=== PATIENT | male | born 1960 | race Caucasian/White ===

== ENCOUNTER 2017-04-17 03:45 | Emergency (ER) | payer OTHER ==
[~2017-04-17] VITALS: Ht 180.3 cm; Wt 120.2 kg
--- NOTE | 2017-04-17 03:57 | ED GI/GU/ABDOMINAL COMPLAINT ---
History of Present Illness General Chief Complaint: Abdominal Pain/Flank Pain Stated Complaint: RIGHT SIDE FLANK PAIN Source: patient Exam Limitations: no limitations Vital Signs & Intake/Output Vital Signs & Intake/Output Vital Signs Date Time Temp Pulse Resp B/P B/P Pulse O2 O2 Flow FiO2 Mean Ox Delivery Rate 04/17 0349 97.5 88 16 193/92 99 Room Air Allergies Coded Allergies: NO KNOWN ALLERGIES (04/12/12) Reconcile Medications No Known Home Medications Triage Note: 56YO MALE TO TRIAGE W/CO R SIDED FLANK PAIN THAT AWOKE HIME AT 0145. CO WAVES OF NAUSEA W/PAIN. Triage Nurses Notes Reviewed? yes HPI: DUPLICATE NOTE PLEASE DISREGARD Past History Travel History Traveled to [place] past 21 day No Medical History Any Pertinent Medical History? see below for history Tetanus Vaccine: 04/12/12 Psychosocial History What is your primary language Luxembourgish Tobacco Use: Never used Review of Systems Review of Systems Constitutional: Reports: no symptoms. EENTM: Reports: no symptoms. Respiratory: Reports: no symptoms. Cardiovascular: Reports: no symptoms. GI: Reports: no symptoms. Genitourinary: Reports: no symptoms. Musculoskeletal: Reports: no symptoms. Skin: Reports: no symptoms. Neurological/Psychological: Reports: no symptoms. Hematologic/Endocrine: Reports: no symptoms. Immunologic/Allergic: Reports: no symptoms. All Other Systems: Reviewed and Negative Progress Plan of Care: Orders Procedure Date/time Status CT ABD & PELVIS W/O IV CONTRAS 04/17 413 Active URINALYSIS 04/17 359 Active LIPASE 04/17 359 Active HEPATIC FUNCTION PANEL 04/17 359 Active CBC WITHOUT DIFFERENTIAL 04/17 359 Active BASIC METABOLIC PANEL 04/17 359 Active AMYLASE 04/17 359 Active Current Medications Sig/Bran Start time Last Medication Dose Stop Time Status Admin Sodium Chloride 1,000 ML BOLUS ONE 04/17 415 AC (Normal Saline 0.9%) 04/17 614 Departure Departure Condition: Stable Referrals: PATIENT HAS NO PRIMARY CARE DR (PCP/Family) Departure Forms: Customer Survey General Discharge Information Prescriptions: Current Visit Scripts No Known Home Medications
--- NOTE | 2017-04-17 03:59 | ED GI/GU/ABDOMINAL COMPLAINT ---
History of Present Illness General Chief Complaint: Abdominal Pain/Flank Pain Stated Complaint: RIGHT SIDE FLANK PAIN Source: patient Exam Limitations: no limitations Allergies Coded Allergies: NO KNOWN ALLERGIES (04/12/12) Reconcile Medications Ibuprofen 800 MG TABLET 1 TAB PO TID PRN pain Tamsulosin HCl (Flomax) 0.4 MG CAP.ER.24H 1 CAP PO DAILY kidney stone Triage Note: 56YO MALE TO TRIAGE W/CO R SIDED FLANK PAIN THAT AWOKE HIME AT 0145. CO WAVES OF NAUSEA W/PAIN. Triage Nurses Notes Reviewed? yes HPI: 56y M coming in for sudden onset 3/10 R flank pain at 0145 that woke him up at sleep. The pain is constant dull pain and does not radiate. he denied SOB/CP/ Fever, or PMH of kidney/gall stones. He urinated after waking up but no burning/ blood in urine. he felt nauseated but not vomiting. He ate regular dinner last night with at home. He denied recent trauma to flank area. Pt denied fever/night sweat/weight change/mood change/insomnia, dietary/appetite change, Cough/SOB/CP/Palpitation/exercise intolerance, bowel movement/urinary abnormality, or other skin/musculoskeletal/neurological disorders. (AARON URBAN,DORIS FERRERA) Vital Signs & Intake/Output Vital Signs & Intake/Output Vital Signs Date Time Temp Pulse Resp B/P B/P Pulse O2 O2 Flow FiO2 Mean Ox Delivery Rate 04/17 0631 97.5 81 18 170/98 95 Room Air 04/17 0349 97.5 88 16 193/92 99 Room Air Past History Travel History Traveled to [place] past 21 day No Medical History Any Pertinent Medical History? see below for history Tetanus Vaccine: 04/12/12 Surgical History Surgical History: non-contributory Psychosocial History What is your primary language Greenlandic Tobacco Use: Never used Family History Hx Contributory? No (AARON URBAN,DORIS FERRERA) Review of Systems Review of Systems Constitutional: Reports: see HPI. Comments Constitutional: no significant weight change. No fatigue, fever, night sweats, or exercise intolerance. Skin: no jaundice, hives, eczema, rashes, or abnormal moles. Neck: no swollen glands or neck stiffness. Respiratory: no cough, wheezing, shortness of breath, or coughing up blood. Cardiovascular: no SOB, palpitations, chest pain, arm pain on exertion, or leg swelling. Gastrointestinal: R flank pain. Normal appetite. no vomiting, diarrhea, constipation, or rectal bleeding. Genitourinary: No incontinence, hematuria, difficulty urinating, or increased frequency. Musculoskeletal: no muscle aches or weakness, no arthralgias/joint pain, or back pain; Neurologic: no loss of consciousness or balance; no weakness, numbness, seizures , or dizziness. Psych: no depression, anxiety, sleep disturbances, homicidal thoughts, or suicidal thoughts. (AARON URBAN,DORIS FERRERA) Physical Exam Physical Exam Gastrointestinal: tenderness, R flank pain Comments: Head: normocephalic and atraumatic. Lungs: no dyspnea and good air movement. no wheezing, rales/crackles, or rhonchi and breath sounds normal. Cardiovascular: Apical Impulse ot displaced. normal S1 and S2; no murmurs, rubs, or gallops; and RRR. no carotid bruits. Abdomen: R flank pain 3/10 upon palpation deep. normal bowel sound. No masses, no other tenderness (no guarding, no rebound), or CVA tenderness and soft and non-distended. Back: normal curvature; No tenderness upon palpation. (AARON URBAN,DORIS FERRERA) Core Measures ACS in differential dx? No Severe Sepsis Present: No Septic Shock Present: No (LÁZARO URBAN,MANISH Aguilar) Progress Differential Diagnosis: appendicitis, cholecystitis, ureterolithiasis Diagnostic Imaging: Discussed w/RAD: CT Scan. Radiology Impression: PATIENT: SUSIE RO PRESENT AGE: 56 PATIENT ACCOUNT NO: [id number] : 60 LOCATION: [facility] ORDERING PHYSICIAN: DORIS WALKER MD SERVICE DATE: 04/17/17 EXAM TYPE: CAT - CT ABD & PELVIS W/O IV CONTRAS EXAMINATION: CT ABDOMEN AND PELVIS WITHOUT CONTRAST CLINICAL INFORMATION: Right flank pain COMPARISON: None TECHNIQUE: Multidetector volumetric imaging was performed from the superior aspect of the liver through the pubic symphysis. Sagittal and coronal reformatted images were obtained on the technologist's workstation. DLP: 1293.33 mGy-cm FINDINGS: LUNG BASES: The visualized lung bases are unremarkable. LIVER, GALLBLADDER, AND BILIARY TREE: The liver is normal in size, shape, and attenuation. No focal hepatic lesion or biliary ductal dilatation is present. The gallbladder is unremarkable with no evidence of radiopaque gallstones, gallbladder wall thickening, or obvious pericholecystic inflammatory changes. PANCREAS: Unremarkable. SPLEEN: Unremarkable. ADRENAL GLANDS: Unremarkable. KIDNEYS AND URETERS: There is a 3 mm calculus in the proximal right ureter with mild hydronephrosis and associated perinephric stranding. No additional calculi are seen bilaterally. No left hydronephrosis. BLADDER: Unremarkable. GASTROINTESTINAL TRACT: The small and large bowel are unremarkable. The appendix is unremarkable. ABDOMINAL WALL: No significant hernia is appreciated. LYMPH NODES: Normal. VASCULAR: Unremarkable. PELVIC VISCERA: Unremarkable. OSSEOUS STRUCTURES: Degenerative changes are noted in the spine. IMPRESSION: Proximal right ureteral calculus measuring 3 mm with mild hydronephrosis. DICTATED BY: LUANNE WATT MD DATE/TIME DICTATED:04/17/17527 WINDOW TREATMENT INSTALLER:GIN DATE/TIME TRANSCRIBED:04/17/17527 CONFIDENTIAL, DO NOT COPY WITHOUT APPROPRIATE AUTHORIZATION. <Electronically signed in Other Vendor System> SIGNED BY: LUANNE WATT MD 04/17/17536 Initial ED EKG: none (AARON URBAN,DORIS FERRERA) Plan of Care: Orders Procedure Date/time Status URINALYSIS 04/17 359 Active LIPASE 04/17 359 Complete HEPATIC FUNCTION PANEL 04/17 359 Complete CBC WITHOUT DIFFERENTIAL 04/17 359 Complete BASIC METABOLIC PANEL 04/17 359 Complete AMYLASE 04/17 359 Complete Current Medications Sig/Bran Start time Last Medication Dose Stop Time Status Admin Ketorolac 30 MG ONCE ONE 04/17 415 CAN Tromethamine 04/17 416 (Toradol) Laboratory Tests 04/17/17417: Anion Gap 12, Estimated GFR > 60, BUN/Creatinine Ratio 16.4, Glucose 162 H, Calcium 9.6, Total Bilirubin 0.4, Direct Bilirubin 0.3, AST 36, ALT 52, Alkaline Phosphatase 73, Total Protein 7.6, Albumin 4.4, Amylase 43, Lipase 64, CBC w Diff NO MAN DIFF REQ, RBC 5.24, MCV 86.6, MCH 29.7, RDW 13.6, MPV 9.4, Gran % 61.6, Lymphocytes % 27.9, Monocytes % 6.8, Eosinophils % 3.2, Basophils % 0.5, Absolute Granulocytes 5.7, Absolute Lymphocytes 2.6, Absolute Monocytes 0.6, Absolute Eosinophils 0.3, Absolute Basophils 0, PUBS MCHC 34.3 Radiology Impression: PATIENT: SUSIE RO PRESENT AGE: 56 PATIENT ACCOUNT NO: [id number] : 60 LOCATION: [facility] ORDERING PHYSICIAN: DORIS WALKER MD SERVICE DATE: 04/17/17 EXAM TYPE: CAT - CT ABD & PELVIS W/O IV CONTRAS EXAMINATION: CT ABDOMEN AND PELVIS WITHOUT CONTRAST CLINICAL INFORMATION: Right flank pain COMPARISON: None TECHNIQUE: Multidetector volumetric imaging was performed from the superior aspect of the liver through the pubic symphysis. Sagittal and coronal reformatted images were obtained on the technologist's workstation. DLP: 1293.33 mGy-cm FINDINGS: LUNG BASES: The visualized lung bases are unremarkable. LIVER, GALLBLADDER, AND BILIARY TREE: The liver is normal in size, shape, and attenuation. No focal hepatic lesion or biliary ductal dilatation is present. The gallbladder is unremarkable with no evidence of radiopaque gallstones, gallbladder wall thickening, or obvious pericholecystic inflammatory changes. PANCREAS: Unremarkable. SPLEEN: Unremarkable. ADRENAL GLANDS: Unremarkable. KIDNEYS AND URETERS: There is a 3 mm calculus in the proximal right ureter with mild hydronephrosis and associated perinephric stranding. No additional calculi are seen bilaterally. No left hydronephrosis. BLADDER: Unremarkable. GASTROINTESTINAL TRACT: The small and large bowel are unremarkable. The appendix is unremarkable. ABDOMINAL WALL: No significant hernia is appreciated. LYMPH NODES: Normal. VASCULAR: Unremarkable. PELVIC VISCERA: Unremarkable. OSSEOUS STRUCTURES: Degenerative changes are noted in the spine. IMPRESSION: Proximal right ureteral calculus measuring 3 mm with mild hydronephrosis. DICTATED BY: LUANNE WATT MD DATE/TIME DICTATED:04/17/17527 WINDOW TREATMENT INSTALLER:GIN DATE/TIME TRANSCRIBED:04/17/17527 CONFIDENTIAL, DO NOT COPY WITHOUT APPROPRIATE AUTHORIZATION. <Electronically signed in Other Vendor System> SIGNED BY: LUANNE WATT MD 04/17/17 0537 Comments: PATIENT: SUSIE RO PRESENT AGE: 56 PATIENT ACCOUNT NO: [id number] : 60 LOCATION: ER ORDERING PHYSICIAN: DORIS WALKER MD SERVICE DATE: 04/17/175 EXAM TYPE: CAT - CT ABD & PELVIS W/O IV CONTRAS EXAMINATION: CT ABDOMEN AND PELVIS WITHOUT CONTRAST CLINICAL INFORMATION: Right flank pain COMPARISON: None TECHNIQUE: Multidetector volumetric imaging was performed from the superior aspect of the liver through the pubic symphysis. Sagittal and coronal reformatted images were obtained on the technologist's workstation. DLP: 1293.33 mGy-cm FINDINGS: LUNG BASES: The visualized lung bases are unremarkable. LIVER, GALLBLADDER, AND BILIARY TREE: The liver is normal in size, shape, and attenuation. No focal hepatic lesion or biliary ductal dilatation is present. The gallbladder is unremarkable with no evidence of radiopaque gallstones, gallbladder wall thickening, or obvious pericholecystic inflammatory changes. PANCREAS: Unremarkable. SPLEEN: Unremarkable. ADRENAL GLANDS: Unremarkable. KIDNEYS AND URETERS: There is a 3 mm calculus in the proximal right ureter with mild hydronephrosis and associated perinephric stranding. No additional calculi are seen bilaterally. No left hydronephrosis. BLADDER: Unremarkable. GASTROINTESTINAL TRACT: The small and large bowel are unremarkable. The appendix is unremarkable. ABDOMINAL WALL: No significant hernia is appreciated. LYMPH NODES: Normal. VASCULAR: Unremarkable. PELVIC VISCERA: Unremarkable. OSSEOUS STRUCTURES: Degenerative changes are noted in the spine. IMPRESSION: Proximal right ureteral calculus measuring 3 mm with mild hydronephrosis. DICTATED BY: LUANNE WATT MD DATE/TIME DICTATED:04/17/17527 WINDOW TREATMENT INSTALLER:GIN DATE/TIME TRANSCRIBED:04/17/17527 CONFIDENTIAL, DO NOT COPY WITHOUT APPROPRIATE AUTHORIZATION. <Electronically signed in Other Vendor System> SIGNED BY: LUANNE WATT MD 04/17/17 0537 (LÁZARO URBAN,MANISH Aguilar) Departure Departure Disposition: HOME OR SELF CARE Condition: Stable Referrals: PATIENT HAS NO PRIMARY CARE DR (PCP/Family) JESSICA BROWN MD Additional Instructions: Please be compliant with your medications and follow up with your primary care doctor for current symptoms. Please come back to ER if symptom worsens. Departure Forms: Customer Survey General Discharge Information Prescriptions: Current Visit Scripts Ibuprofen 1 TAB PO TID PRN pain #60 TAB Ref 1 Tamsulosin HCl (Flomax) 1 CAP PO DAILY #10 CAP (AARON URBAN,DORIS FERRERA) Departure Clinical Impression Primary Impression: Ureteral stone Secondary Impressions: Renal colic on right side PA/MACHINE HEEL SEAT FITTER Co-Sign Statement Statement: ED Attending supervision documentation- [x] I saw and evaluated the patient. I have also reviewed all the pertinent lab results and diagnostic results. I agree with the findings and the plan of care as documented in the PA's/MACHINE HEEL SEAT FITTER's documentation. 7.27.17, 6:05am... pt feels well. He does not wish to stay to give a urine... Close follow up encouraged. [] I have reviewed the ED Record and agree with the PA's/MACHINE HEEL SEAT FITTER's documentation. [] Additions or exceptions (if any) to the PAs/MACHINE HEEL SEAT FITTER's note and plan are summarized below: [] (LÁZARO URBAN,MANISH Aguilar)
[2017-04-17 04:29] LABS: ABSOLUTE BASOPHIL COUNT 0 /CUMM (0.0-0.2); ABSOLUTE EOSINOPHIL COUNT 0.3 /CUMM (0.0-0.7); ABSOLUTE GRANULOCYTE CT 5.7 /CUMM (1.4-6.5); ABSOLUTE LYMPH COUNT 2.6 /CUMM (1.2-3.4); ABSOLUTE MONOCYTE COUNT 0.6 /CUMM (0.10-0.60); BASOPHIL % 0.5 % (0.0-2.0); EOSINOPHIL % 3.2 % (0-5); GRANULOCYTE % 61.6 % (42.2-75.2); HEMATOCRIT 45.4 % (42-52); MEAN CORPUSCULAR HGB 29.7 PG (27.0-31.0); MEAN CORPUSCULAR HGB CONC 34.3 G/DL (33.0-37.0); MEAN CORPUSCULAR VOLUME 86.6 FL (80.0-94.0); MEAN PLATELET VOLUME 9.4 FL (7.4-10.4); PLATELET COUNT 214 /CUMM (130-400); RBC DISTRIBUTION WIDTH 13.6 % (11.5-14.5); RED BLOOD CELL CT 5.24 /CUMM (4.70-6.10); WHITE BLOOD CELL COUNT 9.3 /CUMM (4.8-10.8)
--- NOTE | 2017-04-17 05:37 | CT SCAN REPORT ---
EXAMINATION: CT ABDOMEN AND PELVIS WITHOUT CONTRAST CLINICAL INFORMATION: Right flank pain COMPARISON: None TECHNIQUE: Multidetector volumetric imaging was performed from the superior aspect of the liver through the pubic symphysis. Sagittal and coronal reformatted images were obtained on the technologist's workstation. DLP: 1293.33 mGy-cm FINDINGS: LUNG BASES: The visualized lung bases are unremarkable. LIVER, GALLBLADDER, AND BILIARY TREE: The liver is normal in size, shape, and attenuation. No focal hepatic lesion or biliary ductal dilatation is present. The gallbladder is unremarkable with no evidence of radiopaque gallstones, gallbladder wall thickening, or obvious pericholecystic inflammatory changes. PANCREAS: Unremarkable. SPLEEN: Unremarkable. ADRENAL GLANDS: Unremarkable. KIDNEYS AND URETERS: There is a 3 mm calculus in the proximal right ureter with mild hydronephrosis and associated perinephric stranding. No additional calculi are seen bilaterally. No left hydronephrosis. BLADDER: Unremarkable. GASTROINTESTINAL TRACT: The small and large bowel are unremarkable. The appendix is unremarkable. ABDOMINAL WALL: No significant hernia is appreciated. LYMPH NODES: Normal. VASCULAR: Unremarkable. PELVIC VISCERA: Unremarkable. OSSEOUS STRUCTURES: Degenerative changes are noted in the spine. IMPRESSION: Proximal right ureteral calculus measuring 3 mm with mild hydronephrosis.
[2017-04-17] MEDS ORDERED: IBUPROFEN800 M1 PO (06:07)
[2017-04-17] MEDS ORDERED: FLOMAX0.4 M1 PO (06:07)
[2017-04-17 06:31] VITALS: BP 170/98
== END 2017-04-17 06:41 ==
LOC: ERH 03:45
PROVIDERS: Pediatrics
DX: N20.1 Calculus of ureter (principal); N23 Unspecified renal colic
CPT/HCPCS: 74176; 96361; 96374; J1885